=== PATIENT | female | born 1990 | race Two or more races ===

== ENCOUNTER 2019-06-01 07:18 | Emergency (ER) | payer MEDICAID ==
[~2019-06-01] VITALS: Ht 154.9 cm; Wt 71.3 kg
[~2019-06-01 07:18] MED LIST: LOPE-144 PO
[2019-06-01] MEDS ORDERED: NORE0.353 PO (07:45)
[2019-06-01 07:53] LABS: BASOPHILS % (AUTO) 0.3 % (0-1); EOSINOPHILS # (AUTO) 0.1 X10'3 (0-0.9); EOSINOPHILS % (AUTO) 0.6 % (0-6); HEMATOCRIT 36.9 % (35.0-45.0); HEMOGLOBIN 12.6 g/dl (12.0-16.0); LYMPHOCYTES # (AUTO) 1.6 X10'3 (1.1-4.8); LYMPHOCYTES % (AUTO) 14.6 % (21-51); MEAN CORPUSCULAR HEMOGLOBIN 28.2 PG (27.0-31.0); MEAN CORPUSCULAR HGB CONC 34.2 g/dL (33.0-36.5); MEAN CORPUSCULAR VOLUME 82.6 FL (78-98); MEAN PLATELET VOLUME 7.5 FL (7.4-10.4); MONOCYTES # (AUTO) 0.7 X10'3 (0-0.9); MONOCYTES % (AUTO) 5.8 % (2-12); NEUTROPHILS # (AUTO) 8.9 X10'3 (1.8-7.7); NEUTROPHILS % (AUTO) 78.7 % (42-75); PLATELET COUNT 280 X10'3 (140-440); RED BLOOD COUNT 4.47 X10'6 (4.20-5.60); RED CELL DISTRIBUTION WIDTH 14.7 % (11.5-14.5); WHITE BLOOD COUNT 11.3 X10'3 (4.5-11.0)
[2019-06-01] MEDS ORDERED: pantoprazole 40 MG vial IV ONE (08:05)
[2019-06-01] MEDS ORDERED: proCHLORperazine 10 MG/2 ml inj IV ONE (08:05)
[2019-06-01] MEDS ORDERED: LORazepam 2 mg/ml vial IV ONE (08:05)
[2019-06-01] MEDS ORDERED: normal saline 1000ML IV soln IVB ONE (08:05)
[2019-06-01] MEDS ORDERED: morphine 2 MG/ML inj. syringe IV PRN (08:05)
[2019-06-01 08:10] LABS: ALANINE AMINOTRANSFERASE 23 U/L (12-78); ALBUMIN 4.2 G/DL (3.4-5.0); ALBUMIN/GLOBULIN RATIO 1.1 (1.1-1.5); ALKALINE PHOSPHATASE 69 IU/L (46-116); ANION GAP 9 (8-16); ASPARTATE AMINO TRANSFERASE 18 U/L (10-37); BILIRUBIN,TOTAL 0.6 MG/DL (0.1-1.0); BLOOD UREA NITROGEN 7 MG/DL (7-18); BUN/CREATININE RATIO 9.2 (6.6-38.0); CALCIUM 8.8 MG/DL (8.5-10.1); CHLORIDE 105 MMOL/L (99-107); CREATININE 0.76 MG/DL (0.40-0.90); GLUCOSE 97 MG/DL (70-104); LIPASE 60 U/L (73-393); POTASSIUM 3.9 MMOL/L (3.5-5.1); SODIUM 140 MMOL/L (135-145); TOTAL CARBON DIOXIDE 26.1 MMOL/L (24-32); TOTAL PROTEIN 7.9 G/DL (6.4-8.2); eGFR > 90 ML/MIN
--- NOTE | 2019-06-01 09:57 | NUR ---
PT UNABLE TO URINATE AFTER SEVERAL ATTEMPTS. PT STATES SHE URINATED RIGHT BEFORE SHE CAME TO ED.
[2019-06-01 11:11] LABS: COLOR,URINE YELLOW (Yellow); GLUCOSE, URINE NEGATIVE (Neg); KETONES,URINE NEGATIVE (Neg); LEUKOCYTE ESTERASE ,URINE NEGATIVE (Neg); NITRITES, URINE NEGATIVE (Neg); OCCULT BLOOD,URINE TRACE-INTACT (Neg); PH,URINE 7.5 (4.8-8.0); PROTEIN,URINE NEGATIVE (Neg); UROBILINOGEN,URINE 0.2 E.U/dL (0.2-1.0)
[2019-06-01 11:12] LABS: URINE HCG NEGATIVE (NEG)
[2019-06-01 11:21] LABS: CLARITY,URINE SLIGHTLY CLOUDY (Clear); UA COLLECTION TYPE CLN CATCH MIDSTREAM
[2019-06-01 11:22] LABS: BACTERIA,URINE 3+ /HPF (Neg); MUCUS STRANDS MANY /LPF (Neg); RBC,URINE 0-2 /HPF (0-2); SQUAMOUS EPITHELIAL CELL,UR MANY /LPF (FEW); WBC,URINE 0-4 /HPF (0-4)
[2019-06-01] MEDS ORDERED: SIME125C43 PO (12:11)
[2019-06-01] MEDS ORDERED: PANT-47 PO (12:11)
[2019-06-01] MEDS ORDERED: DICY10CA88 PO (12:11)
--- NOTE | 2019-06-02 13:24 | NUR ---
PT CALLED, [facility] DID NOT RECEIVE THE FAX OF HER ORDERED MEDICATIONS AND SHE DID NOT RECEIVE A HARD COPY TO TAKE TO THE PHARMACY. DR DONALDSON CONSULTED AND AUTHORIZED PERSCRIBED MEDICATIONS TO BE CALLED INTO PT'S [facility]. RX FOR BENTYL 10MG, 1 CAP PO Q6HR PRN PAIN; SIMETHICONE 125MG, 1 CAPSULE PO TID PRN PAIN; PROTONIX 40MG, 1 TAB PO DAILY FOR 30 DAYS CALLED INTO [facility] ON [address] REQUESTED BY PT. PT ADVISED TO CALL HER PHARMACY IN 1 HR TO SEE IF THEY ARE READY FOR PRESIDENT/GM PRODUCTION & LIVE EXPERIENCES AND TO CALL BACK IF THERE IS ANYOTHER PROBLEMS.
== END 2019-06-01 12:39 | disposition home or self-care (01) ==
LOC: ER 07:18
DX: R10.13 Epigastric pain (principal); R10.11 Right upper quadrant pain; R10.12 Left upper quadrant pain; Z79.899 Other long term (current) drug therapy
CPT/HCPCS: 36415; 71046; 80053; 81001; 81025; 83690; 85025; 96374; 96375; 99284; C9113; J0780; J2060; J7040